=== PATIENT | male | born 1950 | race Caucasian/White ===

== ENCOUNTER 2025-08-26 12:21 | Outpatient (CLI) | payer MEDICARE, BC, SELFPAY ==
--- OUTSIDE RECORDS SUMMARY | 2025-06-27 11:15 | XMS_ITS | Encounter Summary ---
[facility] [address] [place] [address] Care Team Providers Care Patternmaker Wood Name Role Phone Dmitri Wilkinson MD Primary Care Provider [phone] Reason for Visit * Reason Comments Sleep Apnea Pt states he is here for 31-90 day follow up on MARII. He is doing well on current therapy. DL is in Ready To Travel. Encounter Details Date Type Department Care Team (Late st Contact Info) Description 06/27/2025 11:15 AM EDT Office Visit [facility] [address] [place] [address] Yuli Watts MD [address] [place] [address] MARII (obstructive sleep apnea) (Primary Dx) Social History Tobacco Use Types Packs/Day Years Used Date Smoking Tobacco: Never Passive Smoke Exposure: Never Smokeless Tobacco: Never Tobacco Cessation:Counseling Given: Yes Alcohol Use Standard Drinks/Week Comments Yes 4 (1 standard drink = 0.6 oz pur e alcohol) PHQ-2 Answer Date Recorded Retired PHQ-9: Brief Depression Severity Measure Score 0 01/31/2023 PHQ-2 Answer Date Recorded Patient Health Questionnaire-2 Score 0 05/16/2025 Sex and Gender Information Value Date Recorded Sex Assigned at Male 02/27/2025 12:14 PM EDT Legal Sex Male 11:18 AM EDT Gender Identity Not on file Sexual Orientation Not on file documented as of this encounter Last Filed Vital Signs Vital Sign Reading Time Taken Comments Blood Pressure 116/64 06/27/2025 11:04 AM EDT Pulse 78 06/27/2025 11:04 AM EDT Temperature - - Respiratory Rate - - Oxygen Saturation 97% 06/27/2025 11:04 AM EDT Inhaled Oxygen Concentration - - Weight 125 kg (276 lb) 06/27/2025 11:04 AM EDT Height 182.9 cm (6') 06/27/2025 11:04 AM EDT Body Mass Index 37.43 06/27/2025 11:04 AM EDT documented in this encounter Progress Notes * Yuli Watts MD - 06/27/2025 11:15 AM EDT Images from the original note were not included. [facility] Provider Note Date: 06/27/2025 Name: Jorge Danielson : 1950 PCP: Dmitri Wilkinson MD No chief complaint on file. Subjective History of Present Illness Jorge Danielson is a 75 y.o. male with MARII who presents today for follow up with compliance visit for new machine. Reports that is doing well with current therapy. DL in EPIC and reviewed.Feels rested. Likes new machine. Sleeps well now without snoring. States that spinal stenosis and peripheral neuropathy is acting up. Relays that is in good shape. Goes to gym every morning every day for an hour and doing well with that. Losing weight. 06/27/2025 Updated with no new issues or concerns. Cardiology 1. MARII 2. Mild CAD- CTA -06/17/2021 Impression: Moderate coronary calcification with an Agatston score = 131 using the AJ-130method, which represents 44th percentile when matched for age, gender and ethnicity. Vascular age is 74 years. There is mild disease in the diagonal and OM branches. Non-obstructive disease in the remaining coronary artery vessels. No Known Allergies Current Outpatient Medications: acetaminophen (TYLENOL) 500 MG tablet, Take 1 tablet by mouth Every 6 (Six) Hours As Needed for Mild Pain. Patient taking 2 tablets, Disp: , Rfl: albuterol sulfate HFA 108 (90 Base) MCG/ACT inhaler, Inhale 2 puffs Every 4 (Four) Hours As Needed for Wheezing or Shortness of Air., Disp: 18 g, Rfl: 1 aspirin 81 MG chewable tablet, Chew 1 tablet Daily., Disp: , Rfl: atorvastatin (LIPITOR) 40 MG tablet, TAKE 1 TABLET BY MOUTH EVERY DAY, Disp: 90 tablet, Rfl: 2 cetirizine (ZyrTEC Allergy) 10 MG tablet, Take 1 tablet every day by oral route as needed., Disp: ,Rfl: Cholecalciferol 25 MCG (1000 UT) tablet, Take 1 tablet by mouth 2 (Two) Times a Day. (Patient taking differently: Take 1 tablet by mouth Daily.), Disp: , Rfl: DULoxetine (Cymbalta) 30 MG capsule, Take 1 capsule by mouth Daily., Disp: 90 capsule, Rfl: 3 DULoxetine (CYMBALTA) 60 MG capsule, Take 1 capsule by mouth Daily., Disp: 90 capsule, Rfl: 3 gabapentin (NEURONTIN) 600 MG tablet, Take 600 mg po TID and 1200 mg qhs, Disp: 450 tablet, Rfl: 1 losartan (COZAAR) 25 MG tablet, TAKE 1 TABLET BY MOUTH EVERY DAY, Disp: 90 tablet, Rfl: 2 magnesium oxide (MAG-OX) 400 MG tablet, Take 1 tablet by mouth Daily., Disp: , Rfl: melatonin 5 MG tablet tablet, Take 1 tablet by mouth As Needed., Disp: , Rfl: meloxicam (MOBIC) 15 MG tablet, Take 1 tablet by mouth Daily As Needed for Moderate Pain., Disp: 90tablet, Rfl: 2 multivitamin with minerals (CENTRUM SILVER 50+MEN PO), Take 1 tablet by mouth Daily., Disp: , Rfl: mupirocin (BACTROBAN) 2 % ointment, Apply 1 Application topically to the appropriate area as directed 3 (Three) Times a Day., Disp: 22 g, Rfl: 0 Mcadoo-3 Fatty Acids (OMEGA 3 PO), Take by mouth., Disp: , Rfl: polyethylene glycol (MiraLax) 17 GM/SCOOP powder, 1/2-1 capful mixed with glass of juice or water orally once daily, titrating to maintain 1 or 2 soft bowel movements daily, Disp: 527 g, Rfl: 5 psyllium (METAMUCIL) 58.6 % packet, Take 1 packet by mouth Daily., Disp: , Rfl: Past Medical History: Diagnosis Date Athscl heart disease of zuni coronary artery w/o ang pctrs Benign lipomatous neoplasm of skin and subcutaneous tissue of trunk BPH (benign prostatic hyperplasia) Cervical disc disorder Chronic pain disorder Difficulty walking Erectile dysfunction Essential (primary) hypertension Extremity pain Fractures High cholesterol Knee swelling Low back pain Low back strain Lumbosacral disc disease Mixed hyperlipidemia Neuropathy Obesity Obstructive sleep apnea (adult) (pediatric) Old myocardial infarct Olecranon bursitis of left elbow Pain in right foot Pain in right knee Peripheral neuropathy Pneumonia Prediabetes Spinal stenosis Past Surgical History: Procedure Laterality Date APPENDECTOMY BACK SURGERY 02/28/2023 epidural & steroid injection [place] CARDIOVASCULAR STRESS TEST 05/12/2021 Nuclear study, EF 33 to 38%, fixed inferior perfusion defect likely attenuation with minimal reversibility, overall low risk study CATARACT EXTRACTION Right 2024 COLONOSCOPY 10/29/2009 Dr. Barcenas, 10 year followup recommended EPIDURAL BLOCK FRACTURE SURGERY Fractures involving arm finger and foot INGUINAL HERNIA REPAIR Bilateral 1 as an and the second as a young man JOINT REPLACEMENT KNEE ARTHROSCOPY Left 1987 associated with a believe of the meniscus injury LIPOMA EXCISION left shoulder Dr. Zepeda ORTHOPEDIC SURGERY SHOULDER SURGERY Bilateral performed by Dr. 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 Victorino Reyes TOTAL KNEE ARTHROPLASTY Right 12/30/2023 right total knee arthroplasty with [employer] components (# 8 cruciate retaining femur, # 7 tibia, 12 mm polyethylene, with 35 three peg patella) with CORI robotic assitance By Dr. Victorino Reyes TRIGGER POINT INJECTION Family History Problem Relation Age of Onset Hypertension Mother Stroke Mother Cancer Father Social History Socioeconomic History Marital status: Number of children: 2 Tobacco Use Smoking status: Never Passive exposure: Never Smokeless tobacco: Never Vaping Use Vaping status: Never Used Substance and Sexual Activity Alcohol use: Yes Alcohol/week: 4.0 standard drinks of alcohol Types: 2 Glasses of wine, 2 Cans of beer per week Drug use: Never Sexual activity: Not Currently Partners: Female Objective Vital Signs: There were no vitals taken for this visit. Estimated body mass index is 37.83 kg/m?? as calculated from the following: Height as of 05/16/25: 182.9 cm (72.01 ). Weight as of 05/16/25: 127 kg (279 lb). Physical Exam Constitutional: Appearance: Normal appearance. He is well-developed. HENT: Head: Normocephalic and atraumatic. Eyes: General: No scleral icterus. Pupils: Pupils are equal, round, and reactive to light. Cardiovascular: Rate and Rhythm: Normal rate and regular rhythm. Heart sounds: Normal heart sounds. No murmur heard. Pulmonary: Breath sounds: Normal breath sounds. No wheezing or rhonchi. Musculoskeletal: Right lower leg: No edema. Left lower leg: No edema. Skin: Capillary Refill: Capillary refill takes less than 2 seconds. Coloration: Skin is not cyanotic. Nails: There is no clubbing. Neurological: Mental Status: He is alert and oriented to person, place, and time. Motor: No weakness. Gait: Gait normal. Psychiatric: Mood and Affect: Mood normal. Behavior: Behavior is cooperative. Thought Content: Thought content normal. Assessment and Plan ASSESSMENTS AND ORDERS There are no diagnoses linked to this encounter. PLAN -new pap machine going well.Pap DL reviewed, good compliance and control. Benefiting from pap therapy and plan to continue. -due for labs in August, can review at next OV. Follow Up No follow-ups on file. Claudia Watts MD Cardiology and Sleep [facility] 06/27/2025 Please note that this explicitly excludes time spent on other separate billable services such as performing procedures or test interpretation, when applicable. This note was created using dictation software which occasionally transcribes nonsensical phrases. Please contact the provider if any clarification is needed. documented in this encounter Plan of Treatment Upcoming Encounters Date Type Department Care Team (Late st Contact Info) Description 08/30/2025 8:45 AM EDT Office Visit [facility] [address] [place] [address] [place] [phone] Dmitri Wilkinson MD [address] [place] [address] [place] [id number] 09/12/2025 10:45 AM EDT Office Visit [facility] NEUR[facility] [address] [facility] [address] [place] [address] Brandt Stout MD [address] [facility] [address] [place], [place] [id number] 09/26/2025 11:45 AM EST Office Visit [facility] [address] [place] [address] Tete Ovalle PA-C [address] [place], [place] [id number] 01/02/2026 10:45 AM EST Office Visit [facility] CARDIOLOG[facility] [address] [place] [address] [place] [address] documented as of this encounter Visit Diagnoses Diagnosis MARII (obstructive sleep apnea)- Primary Obstructive sleep apnea (adult) (pediatric) documented in this encounter Care Teams Patternmaker Wood Relationship Specialty Start Date End Date Dmitri Wilkinson MD [address] [place] [address] [place] [address] PCP - General Internal Medicine 09/08/22 documented as of this encounter
--- OUTSIDE RECORDS SUMMARY | 2025-07-18 09:30 | XMS_ITS | Encounter Summary ---
[facility] Address [address] [place] [id number] Care Team Providers Care Eligibility Analyst Name Role Phone Dmitri Wilkinson MD Primary Care Provider [phone] Reason for Referral * MRI/CAT/PET Scan (Routine) - Authorized Specialty Diagnoses / Procedures Referred By Contac t Referred To Contact Diagnoses Vertebrogenic low back pain Procedures MRI Lumbar Spine Without Contrast Tete Ovalle PA-C [address] [place] [address] Phone: tel: fax: [facility] [address] [place] [address] [address] [place] [address] Phone: tel: fax: Referral ID Status Reason Start Date Expiration Date V isits Requested Visits Authorized [id number] Authorized 07/18/2025 10/17/2026 1 1 Reason for Visit * Reason Comments Follow-up SCS nevro Back Pain Encounter Details Date Type Department Care Team (Late st Contact Info) Description 07/18/2025 9:30 AM EDT Office Visit [facility] [address] [facility] [address] [place] [phone] Tete Ovalle PA-C [address] [facility] [address] [place] [address] S/P insertion of spinal cord stimulator (Primary Dx); Painful diabetic neuropathy; Lumbosacral spondylosis without myelopathy; Vertebrogenic low back pain; Chronic pain syndrome Social History Tobacco Use Types Packs/Day Years Used Date Smoking Tobacco: Never Passive Smoke Exposure: Never Smokeless Tobacco: Never Tobacco Cessation:Counseling Given: Not Answered Alcohol Use Standard Drinks/Week Comments Yes 4 (1 standard drink = 0.6 oz pur e alcohol) PHQ-2 Answer Date Recorded Retired PHQ-9: Brief Depression Severity Measure Score 0 01/31/2023 PHQ-2 Answer Date Recorded Patient Health Questionnaire-2 Score 0 07/18/2025 Sex and Gender Information Value Date Recorded Sex Assigned at Male 02/27/2025 12:14 PM EDT Legal Sex Male 11:18 AM EDT Gender Identity Not on file Sexual Orientation Not on file documented as of this encounter Last Filed Vital Signs Vital Sign Reading Time Taken Comments Blood Pressure - - Pulse - - Temperature - - Respiratory Rate - - Oxygen Saturation - - Inhaled Oxygen Concentration - - Weight 126 kg (277 lb) 07/18/2025 9:08 AM EDT Height 182.9 cm (6' 0.01 ) 07/18/2025 9:08 AM ED T Body Mass Index 37.56 07/18/2025 9:08 AM EDT documented in this encounter Functional Status documented as of this encounter Progress Notes * Tete Ovalle PA-C - 07/18/2025 9:30 AM EDTAddended by: TETE LIRA on: 07/18/2025 03:40 PM Modules accepted: Orders * Tete Ovalle PA-C - 07/18/2025 9:30 AM EDT Referring Physician: Dmitri Wilkinson MD [address] [place] [address] [place] [address] Primary Physician: Dmitri Wilkinson MD CHIEF COMPLAINT or REASON FOR VISIT: Follow-up ([facility] jenniffer) and Back Pain Initial history of present illness on 06/18/2024: Mr. Jorge Danielson is 75 y.o. male who presents as a new patient referral for evaluation and treatment of chronic axial low back pain, chronic bilateral foot burning pain. He has had back pain for many years without any specific inciting event or trauma. He describes axial back pain without radiation of the buttocks; pain is exacerbated with extension. He denies much association with ambulation. It tends to be ameliorated with rest. He takes Mobic for this issue which is helpful. Additionally takes duloxetine. He also complains of bilateral foot burning pain. He has had this for several years and it seems to be worsening over time. He takes gabapentin 600 mg 4 times a day to modest effect. If he does not take a pill or even takes it a bit late he has significant return of burning pain in his feet. He is prediabetic with well-controlled HbA1c. He is interested in additional treatments forthis issue. Patient denies any bowel or bladder dysfunction, lower extremity weakness, new onset saddle anesthesia or unexplained weight loss. He was previously treated by Dr. Bullock, pain management, and had a single consultation with Dr. Alston at [facility]. Dr. Bullock performed what sounds like lumbar facet injections. He has never had any back surgery. Interval history: Patient returns to clinic today. At his last office visit he was complaining of increased low back and bilateral foot pain. We did obtain a thoracic radiograph to rule out any type of spinal cord stimulator lead migration. Today, he primarily has axial low back pain as well as bilateral foot burning pain. He states the stimulator will provide relief for approximately 1 week before his symptoms exacerbate. Denies any radiation of his low back pain into the lower extremities. Denies any association with ambulation. Primarily has axial low back pain which is worse with activities that involve forward flexion/bending over. Most recent lumbar MRI was in 2020. Interventions: 09/20/2024: SCS trial Nevro with leads to T8 and T9 with 60 to 70% relief 12/18/2024: SCS implant Nevro (top of T8 and T9) with Objective Pain Scoring: BRIEF PAIN INVENTORY: Total score: Pain Score 07/18/25 0908 PainSc: 8 PainLoc: Foot PHQ-2: PHQ-9: Opioid Risk Tool: Review of Systems: ROS negative except as otherwise noted Past Medical History: Past Medical History: Diagnosis Date Athscl heart disease of [place] coronary artery w/o ang pctrs Benign lipomatous [...] Pneumonia Prediabetes Spinal stenosis Past Surgical History: Past Surgical History: Procedure Laterality Date APPENDECTOMY BACK SURGERY 02/28/2023 epidural & steroid injection [place] CARDIOVASCULAR STRESS TEST 05/12/2021 Nuclear study, EF [...] Victorino Reyes TRIGGER POINT INJECTION Family History Family History Problem Relation Age of Onset Hypertension Mother Stroke Mother Cancer Father Social History Social History Socioeconomic History Marital status: Number of children: 2 Tobacco Use Smoking status: Never Passive exposure: Never Smokeless tobacco: Never Vaping Use Vaping status: Never Used Substance and Sexual Activity Alcohol use: Yes Alcohol/week: 4.0 standard drinks of alcohol Types: 1 Glasses of wine, 1 Cans of beer, 2 Shots of liquor per week Drug use: Never Sexual activity: Not Currently Partners: Female Medications: Current Outpatient Medications: acetaminophen (TYLENOL) 500 MG [...] a Day., Disp: 22 g, Rfl: 0 [place]-3 Fatty Acids (OMEGA 3 PO), Take by mouth., Disp: , Rfl: polyethylene glycol (MiraLax) 17 GM/SCOOP powder, 1/2-1 capful mixed with glass of juice or water orally once daily, titrating to maintain 1 or 2 soft bowel movements daily, Disp: 527 g, Rfl: 5 psyllium (METAMUCIL) 58.6 % packet, Take 1 packet by mouth Daily., Disp: , Rfl: Physical Exam: Vitals: 07/18/25 0908 Weight: 126 kg (277 lb) Height: 182.9 cm (72.01 ) PainSc: 8 PainLoc: Foot General: Alert and oriented, No acute distress. HEENT: Normocephalic, atraumatic. Cardiovascular: No gross edema Respiratory: Respirations are non-labored Thoracic Spine: Inspection: no gross abnormality Paraspinal muscle palpation: nontender Spinous process palpation: nontender Lumbar Spine: No masses or atrophy Range of motion - Flexion normal. Extension reduced. Facet Loading: Positive bilaterally Facet Palpation -tender bilaterally Leticia finger/Gaenslen's/Yash's/RYAN/Thigh thrust - Straight leg raise/slump test: Negative bilaterally Pain with forward flexion Motor Exam: Strength: Rate on 1-5 scale Right Left L1/2- hip flexion 5/5 5/5 L3- knee extension 5/5 5/5 L4- ankle dorsiflexion 5/5 5/5 L5- great toe extension 5/5 5/5 S1- ankle plantarflexion 5/5 5/5 Sensory Exam: Reduced sensation to light touch in bilateral stocking distribution Neurologic: Cranial Nerves II-XII are grossly intact. Psychiatric: Cooperative. Gait: Antalgic Assistive Devices: None Imaging Studies: No results found for this or any previous visit. Independent review of radiographic imaging: Available for my interpretation is a lumbar MRI demonstrating: Grade 1 anterolisthesis of L4 on L5 with severe canal stenosis; bilateral L5/S1 neuroforaminal stenosis; Facet arthropathy worst at L4/L5. Thoracic radiographs dated 05/16/2025 demonstrates: Spinal cord stimulator leads projecting to mid [id number] body and superior endplate of T8 Impression & Plan: 06/18/2024: Jorge Danielson is a 75 y.o. male with past medical history significant for HLD, MARII, prediabetes, idiopathic peripheral neuropathy, first- degree AV block, DM2, who presents to the pain clinic for evaluation and treatment of chronic low back pain, chronic bilateral peripheral neuropathy. MRI interpretation as above. Back pain consistent with lumbar facet arthropathy. He does not have any signs of classic neurogenic claudication despite severe canal stenosis at L4/L5. His primary complaint is burning pain secondary to peripheral neuropathy. He has tried maximum dose gabapentin, compounded topical antineuropathic creams, duloxetine. We discussed spinal cord stimulator trial with Nevro HF10 therapy for painful diabetic neuropathy. Patient was provided a pamphlet on this modality. We will obtain psychiatric clearance for SCS trial. 08/20/2024: Will get psychiatric clearance for SCS trial faxed over. Once psych clearance is received we will proceed with HF 10 SCS trial. Risk of this procedure include bleeding, infection, damage to surrounding structures which may exacerbate symptoms, paralysis, and even . He voiced understanding 09/24/2024: Excellent relief from SCS trial with Nevro. Will proceed with permanent implant. Received gabapentin from neurology. 01/01/2025: 2 weeks s/p permanent SCS implant with Nevro. Incisions healing appropriately. Patient recovering appropriately. Will refill Cymbalta. Continue postoperative restrictions. 01/29/2025: 6 weeks s/p permanent SCS implant with Nevro. Incisions healing appropriately. Patient recovered appropriately. Postoperative restrictions lifted. Nevro device rep here for reprogramming 05/16/2025: S/p permanent SCS implant with Nevro. Was doing well until 2 days ago. Will need thoracic x-ray to rule out lead migration. Nevro rep here for reprogramming. 07/18/2025: Will obtain updated lumbar MRI for suspicion of vertebrogenic low back pain. Nevro devicerep here for questions and reprogramming of stimulator for bilateral foot burning pain. Do have suspicion for overstimulation. Thoracic radiograph reveals leads in programmable position. 1. S/P insertion of spinal cord stimulator 2. Painful diabetic neuropathy 3. Lumbosacral spondylosis without myelopathy 4. Vertebrogenic low back pain 5. Chronic pain syndrome PLAN: 1. Medication Recommendations: Recommend Voltaren topical, NSAIDs, Tylenol. Can trial turmeric 500 mg twice daily if NSAID contraindicated. - Agree with gabapentin and Cymbalta -Continue Mobic 2. Physical Therapy: Continue HEP Postoperative restrictions lifted 3. Psychological: 4. Complementary and alternative (CAM) Therapies: 5. Labs/Diagnostic studies: Compliant UDS as of 06/28/2024 6. Imaging: Thoracic radiograph reviewed and interpreted; reveals leads in similar position to original placement. - Obtain updated lumbar MRI for investigation of Modic endplate changes. Most recent lumbar MRI in 2020 reveals L5, S1 Modic endplate change; Nevro spinal cord stimulator will need to be put in MRI mode. 7. Interventions: 7 months s/p permanent SCS implant with Nevro. -Nevro device rep here for reprogramming 8. Referrals: 9. Records: 10. Lifestyle goals: Follow-up [address] Hill [facility] Pain Management Tete Ovalle PA-C Quality Metrics: documented in this encounter Plan of Treatment Upcoming Encounters Date Type Department Care Team (Late st Contact Info) Description 08/30/2025 8:45 AM EDT Office Visit [facility] PRIMARY CARE [address] [place] [address] [place] [address] Dmitri Wilkinson MD [address] [place] [address] [place] [address] 09/12/2025 10:45 AM EDT Office Visit [facility] [address] [facility] [address] [place] [address] Brandt Stout MD [address] [facility] [address] [place], [place] [id number] 09/26/2025 11:45 AM EST Office Visit [facility] PAIN MANAGEMENT [address] [place] [address] [address] [place] [address] Tete Ovalle PA-C [address] [facility] [address] [place], [place] [id number] 01/02/2026 10:45 AM EST Office Visit [facility] CARDIOLOGY [address] [place] [address] [address] [place] [address] [place] [address] documented as of this encounter Procedures Procedure Name Priority Date/Time Associated Diagnosis Comments MRI LUMBAR SPINE WO CONTRAST Routine 08/01/2025 Vertebrogenic low back pain documented in this encounter Results * MRI Lumbar Spine Without Contrast (08/01/2025) Anatomical Region Laterality Modality Spine, L-spine N/A Magnetic Resonan ce Tete Ovalle PA-C IMG MRI ORDERABLES Final Result documented in this encounter Visit Diagnoses Diagnosis S/P insertion of spinal cord stimulator- Primary Painful diabetic neuropathy Type II or unspecified type diabetes mellitus with neurological manifestations, not stated as uncontrolled Lumbosacral spondylosis without myelopathy Vertebrogenic low back pain Chronic pain syndrome documented in this encounter Care Teams Eligibility Analyst Relationship Specialty Start Date End Date Dmitri Wilkinson MD [address] [place] [address] [place] [address] PCP - General Internal Medicine 09/08/22 documented as of this encounter
--- OUTSIDE RECORDS SUMMARY | 2025-08-14 13:10 | XMS_ITS | Encounter Summary ---
[facility] Address [address] [place] [id number] Care Team Providers Care Web Merchant Name Role Phone Dmitri Wilkinson MD Primary Care Provider [phone] Reason for Referral * Surgical (Routine) - Authorized Specialty Diagnoses / Procedures Referred By Contac t Referred To Contact Diagnoses Spinal stenosis of lumbar region with neurogenic claudication Procedures External Facility Surgical/Procedural Request Neftaly Hill MD [address] [address] Phone: tel: fax: [facility] AT [address] [place] [address] Phone: tel: fax: Referral ID Status Reason Start Date Expiration Date V isits Requested Visits Authorized [id number] Authorized Other 08/14/2025 11/13/2026 1 1 Reason for Visit * Reason Comments Follow-up Back pain Encounter Details Date Type Department Care Team (Late st Contact Info) Description 08/14/2025 1:10 PM EDT Office Visit [facility] PAIN MANAGEMENT [address] [id number] Neftaly Hill MD [address] [place] [address] S/P insertion of spinal cord stimulator (Primary Dx); Painful diabetic neuropathy; Lumbosacral spondylosis without myelopathy; Chronic pain syndrome; Spinal stenosis of lumbar region with neurogenic claudication Social History Tobacco Use Types Packs/Day Years Used Date Smoking Tobacco: Never Passive Smoke Exposure: Never Smokeless Tobacco: Never Tobacco Cessation:Counseling Given: Not Answered Alcohol Use Standard Drinks/Week Comments Yes 6 (1 standard drink = 0.6 oz pur e alcohol) PHQ-2 Answer Date Recorded Retired PHQ-9: Brief Depression Severity Measure Score 0 01/31/2023 PHQ-2 Answer Date Recorded Patient Health Questionnaire-2 Score 0 08/14/2025 Sex and Gender Information Value Date Recorded [...] - Inhaled Oxygen Concentration - - Weight 125 kg (275 lb) 08/14/2025 1:14 PM EDT Height 182.9 cm (6') 08/14/2025 1:14 PM EDT Body Mass Index 37.3 08/14/2025 1:14 PM EDT documented in this encounter Functional Status documented as of this encounter Progress Notes * Neftaly Hill MD - 08/14/2025 1:10 PM EDT Referring Physician: No referring provider defined for this encounter. Primary Physician: Dmitri Wilkinson MD CHIEF COMPLAINT or REASON FOR VISIT: Follow-up (Back pain) Initial history of present illness on 06/18/2024: [...] a single consultation with Dr. Alston at [facility]. Dr. Bullock performed what sounds like lumbar facet injections. He has never had any back surgery. Interval history: Patient returns to clinic today. He is doing well with his spinal stimulator for peripheral neuropathy however is complaining of increasing back pain. He has historically had excellent benefit with epidural steroid injections. 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 CARDIOVASCULAR STRESS TEST 05/12/2021 Nuclear study, EF [...] and Sexual Activity Alcohol use: Yes Alcohol/week: 6.0 standard drinks of alcohol Types: 2 Glasses of wine, 2 Cans of beer, 2 Shots of liquor [...] tablet by mouth Daily.), Disp: , Rfl: diazePAM (Valium) 5 MG tablet, Take 1 tablet by mouth As Needed for Anxiety. 1 tablet 30 minutes prior to MRI, and 1 tablet immediately before MRI as needed, Disp: 2 tablet, Rfl: 0 DULoxetine (Cymbalta) 30 MG capsule, Take 1 [...] a Day., Disp: 22 g, Rfl: 0 [place]ams-3 Fatty Acids (OMEGA 3 PO), Take by mouth., Disp: , Rfl: polyethylene glycol (MiraLax) 17 GM/SCOOP powder, 1/2-1 capful mixed with glass of juice or water orally once daily, titrating to maintain 1 or 2 soft bowel movements daily, Disp: 527 g, Rfl: 5 psyllium (METAMUCIL) 58.6 % packet, Take 1 packet by mouth Daily., Disp: , Rfl: Physical Exam: Vitals: 08/14/25 1314 Weight: 125 kg (275 lb) Height: 182.9 cm (72 ) PainSc: 9 PainLoc: Back General: Alert and oriented, No acute distress. HEENT: Normocephalic, atraumatic. Cardiovascular: No gross edema Respiratory: Respirations are non-labored Thoracic Spine: Inspection: no gross abnormality Paraspinal muscle palpation: nontender Spinous process palpation: nontender Lumbar Spine: No masses or atrophy Range of motion - Flexion normal. Extension reduced. Facet Loading: Positive bilaterally Facet Palpation -tender bilaterally Letciia finger/Gaenslen's/Yash's/RYAN/Thigh thrust - Straight leg raise/slump test: [...] Spinal cord stimulator leads projecting to mid [id number] body and superior endplate of T8 Available for my interpretation is a lumbar MRI dated August 01, 2025 demonstrating: Scoliosis; mild canal stenosis at L2/L3; severe canal stenosis at L4/L5 severe right L2/L3 foraminal stenosis Impression & Plan: 06/18/2024: Jorge Danielson is [...] Thoracic radiograph reveals leads in programmable position. 08/14/2025: Good relief of neuropathy with SCS. L4-5 stenosis; plan for LESI. Consider L4-5 Minuteman. 1. S/P insertion of spinal cord stimulator 2. Painful diabetic neuropathy 3. Lumbosacral spondylosis without myelopathy 4. Chronic pain syndrome 5. Spinal stenosis of lumbar region with neurogenic claudication PLAN: 1. Medication Recommendations: Recommend Voltaren topical, NSAIDs, Tylenol. Can trial turmeric 500 mg twice daily if NSAID contraindicated. - Agree with gabapentin and Cymbalta -Continue Mobic 2. Physical Therapy: Continue HEP 3. Psychological: 4. Complementary and alternative (CAM) Therapies: 5. Labs/Diagnostics: 6. Imaging: MRI independently interpreted and reviewed with patient 7. Interventions: Schedule lumbar interlaminar epidural steroid injection (possible L3/L4). Consider L4-5 Minuteman 8. Referrals: 9. Records: 10. Lifestyle goals: Follow-up [address] Neftaly Hill MD [facility] Quality Metrics: documented in this encounter Plan of Treatment Upcoming Encounters Date Type Department Care Team (Late st Contact Info) Description 08/30/2025 8:45 AM EDT Office Visit [facility] [address] [place] [address] [place] [address] Dmitri Wilkinson MD [address] [place] [address] 09/12/2025 10:45 AM EDT Office Visit [facility] [address] [place] [address] Brandt Stout MD [address] [place] [address] 09/26/2025 11:45 AM EST Office Visit [facility] PAIN MANAGEMENT [address] [facility] [address] [place] [address] Tete Ovalle PA-C [address] [facility] [address] [place], [place] [phone] 01/02/2026 10:45 AM EST Office Visit [facility] [address] [facility] [address] [place] [address] Yuli Watts MD [address] [place] [address] Scheduled Orders Name Type Priority Associated Diagnoses Orde r Schedule External Facility Surgical/Procedural Request Procedures Routine Spinal stenosis of lumbar region with neurogenic claudication Expected: 08/14/2025, Expires: 08/14/2026 documented as of this encounter Visit Diagnoses Diagnosis S/P insertion of spinal cord stimulator- Primary 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
--- OUTSIDE RECORDS SUMMARY | 2025-08-26 12:30 | XMS_ITS | Encounter Summary ---
[facility] Address [address] [place] [id number] Care Team Providers Care Exhibit Carpenter Name Role Phone Dmitri Wilkinson MD Primary Care Provider [phone] Encounter Details Date Type Department Care Team (Latest Contact Info) Description 06/27/2025 Travel Social History Tobacco Use Types Packs/Day Years Used Date Smoking Tobacco: Never Passive Smoke Exposure: Never Smokeless Tobacco: Never Alcohol Use Standard Drinks/Week Comments Yes 4 [...] on file documented as of this encounter Plan of Treatment Upcoming Encounters Date Type Department Care Team (Late st Contact Info) Description 08/30/2025 8:45 AM EDT Office Visit [facility] PRIMARY [facility] [address] [place] [address] [place] [address] Dmitri Wilkinson MD [address] [place] [address] 09/12/2025 10:45 AM EDT Office Visit [facility] [address] [facility] [address] [place] [address] Brandt Stout MD [address] [facility] [address] [place], [place] [id number] 09/26/2025 11:45 AM EST Office Visit [facility] PAIN MANAGEMENT [address] [facility] [address] [place] [address] Tete Ovalle PA-C [address] [facility] [address] [place], [place] [phone] 01/02/2026 10:45 AM EST Office Visit [facility] [address] [facility] [address] [place] [address] Yuli Watts MD [address] [place] [address] [place] [address] documented as of this encounter Visit Diagnoses Not on filedocumented in this encounter Care Teams Exhibit Carpenter Relationship Specialty Start Date End Date Dmitri Wilkinson MD [address] [place] [address] [place] [address] PCP - General Internal Medicine 09/08/22 documented as of this encounter
--- OUTSIDE RECORDS SUMMARY | 2025-08-26 12:30 | XMS_ITS | Encounter Summary ---
[facility] Address [address] [place] [address] Care Team Providers Care Structural Designer Name Role Phone Dmitri Wilkinson MD Primary Care Provider [phone] Reason for Visit * Reason Onset Date Comments DAVID CRISP - RX REFILL 06/12/2025 Encounter Details Date Type Department Care Team (Late st Contact Info) Description 06/12/2025 Telephone [facility] PAIN [facility]NA[facility]EMENT [address] David Ovalle PA-C [address] [place] [address] DAVID CRISP - RX REFILL Social History Tobacco Use Types Packs/Day Years [...] on file documented as of this encounter Miscellaneous Notes * Telephone Encounter - Abe Mobley - 06/12/2025 12:55 PM EDT Caller: Erum Jorgevin Martinez Relationship: Self Best call back number: [phone]* Requested Prescriptions: [facility] where request should be sent: [facility][id number] - [place], [place] - [address] [place] [address] - [phone] - [phone] Last office visit with prescribing clinician: 05/16/2025 Last telemedicine visit with prescribing clinician: Visit date not found Next office visit with prescribing clinician: 07/18/2025 Additional details provided by patient: N/A Does the patient have less than a 3 day supply: [] Yes [x] No Would you like a call back once the refill request has been completed: [x] Yes [] No If the office needs to give you a call back, can they leave a voicemail: [x] Yes [] No Abe Mobley 06/12/25 12:55 EDT documented in this encounter Plan of Treatment Upcoming Encounters Date Type Department Care Team (Late st Contact Info) Description 08/30/2025 8:45 AM EDT Office Visit [facility] [address] [place] [address] [place] [address] Dmitri Wilkinson MD [address] [place] [address] [place] [address] 09/12/2025 10:45 AM EDT Office Visit [facility] NEUROLOGY [address] [facility] [address] [place] [address] Brandt Stout MD [address] [facility] [address] [place] [address] 09/26/2025 11:45 AM EST Office Visit [facility] PAIN MANAGEMENT [address] [facility] [address] [place] [address] David Ovalle PA-C 1760 [facility] [address] [place], [place] [address] 01/02/2026 10:45 AM EST Office Visit [facility] CARDIOLOGY 3000 [facility] [address] [place] [address] Yuli Watts MD [address] [place] [address] documented as of this encounter Visit Diagnoses Not on filedocumented in this encounter Care Teams Structural Designer Relationship Specialty Start Date End Date Dmitri Wilkinson MD [address] [place] [address] PCP - General Internal Medicine 09/08/22 documented as of this encounter
--- NOTE | 2025-08-26 12:31 | XR_ITS ---
FINAL REPORT CLINICAL HISTORY: evaluate left foot pain/injury FINDINGS: AP, oblique and lateral views of the left foot were obtained. There is no prior exam for comparison. There are very small calcifications adjacent to the proximal shaft of the 5th metatarsal seen only on the oblique view. These are well corticated and likely chronic. There is no acute fracture or dislocation. Mild degenerative joint disease. Soft tissues are unremarkable. IMPRESSION: Degenerative/chronic changes without acute osseous abnormality of the left foot. Reviewed, Interpreted and Dictated by Natalie Brothers MD Transcribed by Constanza Curry Authenticated and [facility]
--- OUTSIDE RECORDS SUMMARY | 2025-08-26 12:31 | XMS_ITS | Encounter Summary ---
[facility] Address [address] [place] [address] Care Team Providers Care Assistive Technology Specialist Name Role Phone Dmitri Wilkinson MD Primary Care Provider [phone] Reason for Visit * Reason Onset Date Comments HILL - SEDATIVE FOR MRI 07/29/2025 Encounter Details Date Type Department Care Team (Late st Contact Info) Description 07/29/2025 Telephone [facility] PAIN MANAGEMENT [address] [phone] Neftaly Hill MD 1760 [place] [address] HILL - SEDATIVE FOR MRI Social History Tobacco Use Types Packs/Day Years [...] encounter Miscellaneous Notes * Telephone Encounter - Sheila Pritchett RN - 07/29/2025 3:58 PM EDT LVM notifying patient valium has been sent in * Telephone Encounter - Kaycee Dunn RegSched Rep - 07/29/2025 2:34 PM EDT Caller: Jorge Danielson Relationship to patient: Self Best call back number: [phone] Patient is needing: PATIENT HAS AN MRI ON 07/31/25 AND IS REQUESTING A VALIUM BE SENT IN - STATES HEIS CLAUSTROPHOBIC HE WANTS A CALL ONCE SENT PLEASE ADVISE documented in this encounter Plan of Treatment Upcoming Encounters Date Type Department Care Team (Late st Contact Info) Description 08/30/2025 8:45 AM EDT Office Visit [facility] PRIMARY CARE [address] [place] [address] [place] [address] Dmitri Wilkinson MD [address] [place] [address] [place] [address] 09/12/2025 10:45 AM EDT Office Visit [facility] NEUROLOGY [address] [facility] [address] [place] [address] Brandt Stout MD [address] [facility] 201 [place] [address] 09/26/2025 11:45 AM EST Office Visit [facility] PAIN MANAGEMENT 3000 [facility] 330 [place] [address] Tete Ovalle PA-C [address] [facility] [address] [place] [address] 01/02/2026 10:45 AM EST Office Visit [facility] CARDIOLOGY 3000 [facility] [address] [place] [address] Yuli Watts MD [address] [place] [address] documented as of this encounter Visit Diagnoses Diagnosis Claustrophobia- Primary Other isolated or specific phobias documented in this encounter Care Teams Assistive Technology Specialist Relationship Specialty Start Date End Date Dmitri Wilkinson MD [address] [place] [address] [place] [address] PCP - General Internal Medicine 09/08/22 documented as of this encounter
--- OUTSIDE RECORDS SUMMARY | 2025-08-26 12:31 | XMS_ITS | Encounter Summary ---
[facility] Address [address] [place] [id number] Care Team Providers Care Last Repairer Name Role Phone Dmitri Wilkinson MD Primary Care Provider [phone] Encounter Details Date Type Department Care Team (Latest Contact Info) Description 07/18/2025 Travel Social History Tobacco Use Types Packs/Day [...] on file documented as of this encounter Functional Status documented as of this encounter Plan of Treatment Upcoming Encounters Date Type Department Care Team (Late st Contact Info) Description 08/30/2025 8:45 AM EDT Office Visit [facility] [address] [place] [address] [place] [address] Dmitri Wilkinson MD [address] [place] [address] 09/12/2025 10:45 AM EDT Office Visit [facility] [address] [email or web address] [address] [place] [address] Brandt Stout MD [address] [place] [address] 09/26/2025 11:45 AM EST Office Visit [facility] PAIN MANAGEMENT [address] [facility] [address] [place] [address] Tete Ovalle PA-C 1760 [facility] [address] [place], [place] [address] 01/02/2026 10:45 AM EST Office Visit [facility] CARD[facility]OLOG[facility] 3000 [facility] [address] [place] [address] Yuli Watts MD [address] [place] [address] [place] [address] documented as of this encounter Visit Diagnoses Not on filedocumented in this encounter Care Teams Last Repairer Relationship Specialty Start Date End Date Dmitri Wilkinson MD [address] [place] [address] [place] [address] PCP - General Internal Medicine 09/08/22 documented as of this encounter
--- OUTSIDE RECORDS SUMMARY | 2025-08-26 12:31 | XMS_ITS | Clinical Summary ---
Author Organization [employer] ([place], [place], [place], [place]) Address [address] [place] [address] Care Team Providers Care Fellmongery Worker Name Role Phone Unavailable Primary Care Provider Unavailabl e Social History Tobacco Use Types Packs/Day Years Used Date Smoking Tobacco: Never Assessed Food Insecurity Answer Date Recorded Food run out past 12 months Not on file 11/14 Food did not last past 12 months Not on file 12/02/2023 Employment Answer Date Recorded Help finding and keeping a job Not on file 0 12/02/2023 Family and Community Support Answer Reyes e Recorded Help with Day to Day Activities Not on file 12/02/2023 Feeling Lonely or Isolated Not on file 12/02 Educational Attainment Answer Date Gorge rded Speak language other than Bulgarian at home Not on file 12/02/2023 Want help with school or training Not on file 12/02/2023 Substance Use Answer Date Recorded Used prescription meds for non-medical reasons N ot on file 12/02/2023 Used illegal drugs past 12 months Not on file 12/02/2023 Sex and Gender Information Value Date Recorded Sex Assigned at Not on file Legal Sex Male 1:58 PM CDT Gender Identity Not on file Sexual Orientation Not on file Plan of Treatment Health Maintenance Due Date Last Done Comments Medicare Initial AWV G0438 Depression Screening (12+) 1961 Tobacco Cessation Counseling and Screening (12+) 1961 Hepatitis C Screening 1967 DTAP/TDAP/TD VACCINES (2 - T d or Tdap) 04/04/2016 04/04/2006 Pneumococcal 50+ years (2 of 2 - PCV20 or PCV21) 08/27/2020 08/27/2019 Respiratory Syncytial Virus (RSV) Adult or (1 - 1-dose 75+ series) 01/19/2024 Falls Risk Screening 11/14/2024 COVID-19 VACCINE (5 - 2024-2 6 season) 2025 04/02/2022, 10/05/2021, 01/09/2021, Additional history exists Influenza Vaccine (#1) 2025 2, 08/27/2019, 07/27/2017 Shingles Vaccine (Zoster) Completed 08/14/2018, 06/2018 Insurance [facility] DARRYL SAWYER ADV MEDICARE [place] [address] [place] [address]/[facility]
--- OUTSIDE RECORDS SUMMARY | 2025-08-26 12:31 | XMS_ITS | Encounter Summary ---
[facility] Address [address] [place] [id number] Care Team Providers Care Envelope Machine Operator Name Role Phone Dmitri Wilkinson MD Primary Care Provider [phone] Encounter Details Date Type Department Care Team (Late st Contact Info) Description 08/07/2025 Telephone [facility] PAIN MANAGEMENT [address] [place] [phone] Mitzi Zepeda MA Social History Tobacco Use Types Packs/Day Years [...] encounter Miscellaneous Notes * Telephone Encounter - Mitzi Zepeda MA - 08/07/2025 4:19 PM EDT Returned patient's call, he wanted to make sure we received MRI report from [facility]. Reminded him to bring disc next appointment. documented in this encounter Plan of Treatment Upcoming Encounters Date Type Department Care Team (Late st Contact Info) Description 08/30/2025 8:45 AM EDT Office Visit [facility] PRIMARY CARE [address] [place] [address] Dmitri Wilkinson MD [address] [place] [address] 09/12/2025 10:45 AM EDT Office Visit [facility] [address] [place] [address] Brandt Stout MD [address] [place] [address] 09/26/2025 11:45 AM EST Office Visit [facility] PAIN MANAGEMENT 3000 [facility] [address] [place] [address] Tete Ovalle PA-C [address] [place] [address] [address] [place], [place] [address] 01/02/2026 10:45 AM EST Office Visit [facility] CARDIOLOGY 3000 [facility] [address] [place] [address] Yuli Watts MD [address] [place] [address] documented as of this encounter Visit Diagnoses Not on filedocumented in this encounter Care Teams Envelope Machine Operator Relationship Specialty Start Date End Date Dmitri Wilkinson MD [address] [place] [address] PCP - General Internal Medicine 09/08/22 documented as of this encounter
--- OUTSIDE RECORDS SUMMARY | 2025-08-26 12:31 | XMS_ITS | Encounter Summary ---
[facility] [address] [place] [id number] Care Team Providers Care Dairy Quality Assurance Officer Name Role Phone Dmitri Wilkinson MD Primary Care Provider [phone] Encounter Details Date Type Department Care Team (Latest Contact Info) Description 08/14/2025 Travel Social History Tobacco Use Types Packs/Day Years Used Date Smoking Tobacco: Never Passive Smoke Exposure: Never Smokeless Tobacco: Never Alcohol Use Standard Drinks/Week Comments Yes 6 [...] Description 08/30/2025 8:45 AM EDT Office Visit [facility] PRIMARY [facility]ARE [address] [place] [address] [place] [address] Dmitri Wilkinson MD [address] [place] [address] 09/12/2025 10:45 AM EDT Office Visit [facility] NEUROLOG[facility] [address] [facility] [address] [place] [address] Brandt Stout MD [address] [place] [address] 09/26/2025 11:45 AM EST Office Visit [facility] PAIN MANAGEMENT [address] [facility] [address] [place] [address] Tete Ovalle PA-C 1760 [facility] [address] [place], [place] [address] 01/02/2026 10:45 AM EST Office Visit [facility] CARDIOLOGY 3000 [facility] 220 [place] [address] Yuli Watts MD [address] [place] [address] [place] [address] documented as of this encounter Visit Diagnoses Not on filedocumented in this encounter Care Teams Dairy Quality Assurance Officer Relationship Specialty Start Date End Date Dmitri Wilkinson MD [address] [place] [address] [place] [address] PCP - General Internal Medicine 09/08/22 documented as of this encounter
--- OUTSIDE RECORDS SUMMARY | 2025-08-26 12:31 | XMS_ITS | Clinical Summary ---
Author Organization [facility] Address [address] [place] [address] Care Team Providers Care Loom Fixer Supervisor Name Role Phone Anshul Wilkinson MD Primary Care Provider [phone] Allergies No known active allergies Social History Tobacco Use Types Packs/Day Years Used Date Smoking Tobacco: Never Assessed Sex and Gender Information Value Date Recorded Sex Assigned at Not on file Legal Sex Male 8:47 PM EDT Gender Identity Not on file Sexual Orientation Not on file Last Filed Vital Signs Vital Sign Reading Time Taken Comments Blood Pressure 96/62 06/17/2021 2:00 PM EDT Pulse 55 06/17/2021 2:00 PM EDT Temperature - - Respiratory Rate 12 06/17/2021 1:30 PM EDT Oxygen Saturation 96% 06/17/2021 12:36 PM EDT Inhaled Oxygen Concentration - - Weight - - Height - - Body Mass Index - - Plan of Treatment Health Maintenance Due Date Last Done Comments [facility]-Depression Screening 1950 [facility]-/Child/Adol SDOH Screenings 1950 [facility]- SDOH Screenings 1967 [facility]-Adult SDOH Screenings 1967 [facility]-DTaP,Tdap,and Td Vaccines (1 - Tdap) 01/19/1968 [facility]-Zoster Vaccines (1 of 2) 1999 [facility]-Pneumococcal Vaccine: 50+ Years (2 of 2 - PCV20 or PCV21) 08/27/2020 08/27/2019 [facility]-RSV Vaccine: 60+ Years or (1 - 1-dose 75+ series) 01/19/2024 [id number] Vaccine (3 - 2024-26 season) 2025 01/09/2021, 12/17/2020 [facility]-Influenza Vaccine (#1) 07/15/202507/15, 08/27/2019, 07/27/2017 HPV Vaccines Aged Out No longer eligi ble based on patient's age to complete this topic [facility]-HIB Vaccines Aged Out No longer e ligible based on patient's age to complete this topic [facility]-Hepatitis A Vaccines Aged Out No longer eligible based on patient's age to complete this topic [facility]-IPV Vaccines Aged Out No longer e ligible based on patient's age to complete this topic [facility]-Rotavirus Vaccines Aged Out No lo nger eligible based on patient's age to complete this [place] [address] [facility] Care Teams Loom Fixer Supervisor Relationship Specialty Start Date End Date Anshul Wilkinson MD [address] [place] [address] PCP - General 06/17/21
--- OUTSIDE RECORDS SUMMARY | 2025-08-26 12:31 | XMS_ITS | Encounter Summary ---
[facility] Address [address] [place] [address] Care Team Providers Care Fundraising Sale Representative Name Role Phone Dmitri Wilkinson MD Primary Care Provider [phone] Reason for Visit * Reason Onset Date Comments CRISP - MRI ORDER 07/18/2025 Encounter Details Date Type Department Care Team (Late st Contact Info) Description 07/18/2025 Telephone [facility] PAIN MANAGEMENT [address] [place] [address] Tete Ovalle PA-C [address] [place] [address] CRISP - MRI ORDER Social History Tobacco Use Types Packs/Day Years [...] Functional Status documented as of this encounter Miscellaneous Notes * Telephone Encounter - Sheila Pritchett RN - 07/18/2025 4:05 PM EDT S/w patient's notifying that Mri has been faxed * Telephone Encounter - Tamika Dill RegSched Rep - 07/18/2025 11:34 AM EDT Provider: ROHITH Caller: BERNA SONI Relationship to Patient: Emergency Contact Pharmacy: [facility] Phone Number: [phone] Reason for Call: PT CALLED AND STATED THAT [facility] NEEDS TO HAVE THE ORDERFAXED OVER TO THEM FOR THE MRI TO BE SCHEDULED ALSO NEEDS MEDS FOR FOR CLAUSTROPHOBIA WOULD LIKE A CALL BACK ONCE THIS IS COMPLETED documented in this encounter Plan of Treatment Upcoming Encounters Date Type Department Care Team (Late st Contact Info) Description 08/30/2025 8:45 AM EDT Office Visit [facility] PRIMARY CARE [address] [place] [address] [place] [address] Dmitri Wilkinson MD [address] [place] [address] [place] [address] 09/12/2025 10:45 AM EDT Office Visit [facility] NEUR[facility] [address] [facility] 201 [place] [address] Brandt Stout MD [address] [facility] 201 [place] [address] 09/26/2025 11:45 AM EST Office Visit [facility] PAIN MANAGEMENT 3000 [facility] [address] [place] [address] Tete Ovalle PA-C 1760 [facility] [address] [place] [id number] 01/02/2026 10:45 AM EST Office Visit [facility] CARDIOLOGY 3000 [facility] [address] [place] [address] Yuli Watts MD [address] [place] [address] documented as of this encounter Visit Diagnoses Not on filedocumented in this encounter Care Teams Fundraising Sale Representative Relationship Specialty Start Date End Date Dmitri Wilkinson MD [address] [place] [address] [place] [address] PCP - General Internal Medicine 09/08/22 documented as of this encounter
--- OUTSIDE RECORDS SUMMARY | 2025-08-26 12:31 | XMS_ITS | Referral Summary ---
Author Organization [employer] ([place], [place], [place], [place]) Address [address] [place] [address] Care Team Providers Care Oil Expeller Name Role Phone Unavailable Primary Care Provider [...] Date Gorge rded Speak language other than Portuguese at home Not on file 12/02/2023 Want [...] Orientation Not on file Plan of Treatment Not on file Insurance MEDICARE PART A B [facility]
--- OUTSIDE RECORDS SUMMARY | 2025-08-26 12:31 | XMS_ITS | Clinical Summary ---
[facility] Address [address] [place] [id number] Care Team Providers Care Bean Picker Name Role Phone Dmitri Wilkinson MD Primary Care Provider [phone] Allergies No known active allergies Medications [place]-3 Fatty Acids (OMEGA 3 PO) Take by mouth. Activ e melatonin 5 MG tablet tablet Take 1 tablet by mouth As Needed. Active polyethylene glycol (MiraLax) 17 GM/SCOOP powderIndication s:Chronic constipation 1/2-1 capful mixed with glass of juice or water orally once daily, titrating to maintain 1 or 2 soft bowel movements daily 527 g 5 3 Active aspirin 81 MG chewable tablet Chew 1 tablet Daily. Active acetaminophen (TYLENOL) 500 MG tablet Take 1 tablet by mouth Every 6 (Six) Hours As Needed for Mild Pain. Patient taking 2 tablets Active Cholecalciferol 25 MCG (1000 UT) tablet Take 1 tablet by mouth 2 (Two) Times a Day. Active cetirizine (ZyrTEC Allergy) 10 MG tablet Take 1 tablet every day by oral route as needed. Active multivitamin with minerals (CENTRUM SILVER 50+MEN PO) Take 1 tablet by mouth Daily. Active mupirocin (BACTROBAN) 2 % ointmentIndicati ons:Wound dehiscence Apply 1 Application topically to the appropriate area as directed 3 (Three) Times a Day. 22 g 4 Active albuterol sulfate HFA 108 (90 Base) MCG/ACT inhalerIndicatio ns:Reactive airways dysfunction syndrome Inhale 2 puffs Every 4 (Four) Hours As Needed for Wheezing or Shortness of Air. 18 g 1 4 Active psyllium (METAMUCIL) 58.6 % packet Take 1 packet by mouth Daily. Active atorvastatin (LIPITOR) 40 MG tablet TAKE 1 TABLET BY MOUTH EVERY DAY 90 tablet 2 4 Active magnesium oxide (MAG-OX) 400 MG tablet Take 1 tablet by mouth Daily. Active gabapentin (NEURONTIN) 600 MG tabletIndication s:Painful diabetic neuropathy Take 600 mg po TID and 1200 mg qhs 450 tablet 1 5 Active DULoxetine (Cymbalta) 30 MG capsule Take 1 capsule by mouth Daily. 90 capsule 3 5 04/04/20 26 Active DULoxetine (CYMBALTA) 60 MG capsule Take 1 capsule by mouth Daily. 90 capsule 3 5 Active losartan (COZAAR) 25 MG tabletIndication s:Microalbuminur ia TAKE 1 TABLET BY MOUTH EVERY DAY 90 tablet 2 5 Active meloxicam (MOBIC) 15 MG tablet Take 1 tablet by mouth Daily As Needed for Moderate Pain. 90 tablet 2 5 Active diazePAM (Valium) 5 MG tabletIndication s:Claustrophobia Take 1 tablet by mouth As Needed for Anxiety. 1 tablet 30 minutes prior to MRI, and 1 tablet immediately before MRI as needed 2 tablet 5 Active Active Problems Problem Noted Date Diagnosed Date Pure hypercholesterolemia 03/28/2025 Medicare annual wellness visit, subsequent 03/01 Assessment & Plan (03/01/2025 12:26 PM EDT): Restless legs 03/01/2025 Assessment & Plan (03/12/2025 11:17 AM EDT): Continue gabapentin 600 mg TID and 1200 mg qhs Assessment & Plan (03/01/2025 12:26 PM EDT): Does have some twitching and need to move his legs at nighttime. Is not always aware of this. Trial of magnesium 250 mg / 400 mg daily OTC. Moderate obesity 08/21/2024 Assessment & Plan (08/21/2024 3:33 PM EDT): Standard conversation regarding the pathophysiology of obesity, and that this disorder is considered to disease rather than just a lifestyle problem. He does follow a healthy diet diligently, and ST as best able given his chronic pain, does try to be physically active. He is interested in assistance with weight loss via medication, and we discussed actions of GLP-1 agonist along with contraindications and side effects. We have both agreed to initiate a trial of Wegovy 0.25 mg subcu weekly, with tentative plan to follow-up in 1 month for review and potential titration. If this is not a covered product, we did also discuss potential of generic semaglutide as an option. Viral URI with cough 02/27/2024 Assessment & Plan (02/27/2024 12:50 PM EDT): 4 days of classic upper respiratory symptoms most consistent with viral process, associated with bilateral conjunctivitis. has had similar symptoms for several days longer. Treat symptomatically with Bromfed-DM and addresses wheezing as detailed. Advise if not improving over the next several days or for any significant worsening. Acute left otitis media 02/27/2024 Assessment & Plan (02/27/2024 12:51 PM EDT): Likely secondary to eustachian tube dysfunction from his URI. Treating with prednisone to also address his reactive airways, Bromfed-DM for decongestant, and azithromycin. Advise if symptoms not resolving or for any acute worsening. Acute conjunctivitis of both eyes 02/27/2024 Assessment & Plan (02/27/2024 12:51 PM EDT): Polytrim drops along with warm moist compresses. Advise if not improving over several days or for any significant worsening. Reactive airways dysfunction syndrome 02/27/2024 Assessment & Plan (02/27/2024 12:51 PM EDT): Mild expiratory wheezing secondary to his URI, treating with prednisone along with an albuterol inhaler, proper demonstration of use given to the patient. Advised if not improving with treatment or for any significant worsening. Very clinically stable at time of discharge. Encounter for general adult medical examination with abnormal findings 02/03/2024 Assessment & Plan (03/01/2025 12:26 PM EDT): 75-year-old male presenting for Medicare wellness visit and complete physical, specific health issues being addressed as detailed below, health maintenance includes colonoscopy from 12/2022 revealing polyps with 5-year follow-up recommended with Dr. Barcenas, COVID-19 vaccine given today, to update RSV and consider Tdap through pharmacy, current with eye evaluation, EKG today unremarkable, limited hemoglobin A1c screen today stable, full laboratory testing obtained in 08/2024 not repeated today Assessment & Plan (02/03/2024 6:35 PM EDT): 74-year-old male presenting for yearly complete physical and Medicare wellness visit, health issues addressed as detailed below, laboratory testing up-to-date from 01/03/2024 and 08/03/2023, hemoglobin A1c and urine microalbumin updated today as detailed below, health maintenance includes colonoscopy from 12/2022 current with a 5-year follow-up recommended given history of polyps, recommended updating RSV and COVID-19 vaccines, Tdap recommended which will declined at this time given lack of Medicare coverage, and less he has a targeted injury. EKG today not performed as stable from 12/2023. Right-sided chest wall pain 02/03/2024 Assessment & Plan (02/27/2024 12:50 PM EDT): Several months of some vague right-sided lower anterolateral chest wall pain clinically appears to be located exclusively to the lower costal margin, today not involving upper abdomen, noted with twisting maneuvers. No history of blunt trauma. Notes has been worse in the last 3 to 4 days which would correlate to his development of cough and increased use of his costal muscles. There is no dyspnea, no relationship to eating, no nausea vomiting no change in bowel or urinary habits. Documented warm compresses, muscle rub cream, and rest is much as able given his current respiratory illness precipitating cough. If does not continue to settle down over the next several weeks we can certainly pursue a further workup which initially would involve chest x-ray and rib detail. If the symptoms resolved and this will not be necessary. Assessment & Plan (02/03/2024 6:25 PM EDT): Several months of some vague right-sided chest wall extending to the upper abdomen. Primarily noted with twisting maneuvers. No concerning cardiopulmonary or GI symptoms otherwise. Suspect musculoskeletal in nature. Observation recommended with conservative dose of NSAIDs. Advise if any change or acceleration of symptoms. Right upper quadrant abdominal pain 02/03/2024 Assessment & Plan (02/03/2024 6:33 PM EDT): Vague right upper quadrant/right lower chest wall discomfort, noted only with rotational movements of his trunk, no cardiopulmonary trigger, no relationship to eating with no associated nausea, benign exam, benign history, suspect musculoskeletal in nature. Clinical observation with conservative monitoring recommended unless becomes more problematic or change in nature of the symptoms. Microalbuminuria 02/03/2024 Assessment & Plan (03/01/2025 12:26 PM EDT): UACR today normal, having had noted previous microalbuminuria, on losartan. Assessment & Plan (02/03/2024 6:34 PM EDT): Microalbuminuria noted today on screening, associated prediabetes, does not have hypertension but based upon the microalbuminuria will start losartan 25 mg daily. Repeat urine microalbumin in 1 year. Check BMP in the next month to ensure no change in renal function or electrolytes. Wound dehiscence 02/03/2024 Assessment & Plan (02/03/2024 6:37 PM EDT): Small area of wound dehiscence on the surgical site of his right TKA taken last month, no clinical sign of infection, but will apply Rose ointment 2-3 times daily until heals. History of bilateral knee replacement 02/03/2024 Assessment & Plan (03/01/2025 12:26 PM EDT): Doing well with no further pain. Assessment & Plan (05/29/2024 6:15 PM EDT): Status post bilateral TKAs, on the left in 08/2023 and on the right in 12/[address] Victorino Reyes, clinically having done well subsequently. Assessment & Plan (02/03/2024 6:38 PM EDT): Status post bilateral TKAs, on the left 08/2023 on the right 12/[address] Victorino Brenner, rehabbing well. Degenerative lumbar spinal stenosis 10/12/2023 Assessment & Plan (03/01/2025 12:26 PM EDT): Chronic lumbago with spinal stenosis and lumbar radiculopathy, much improved taking gabapentin 6 7 mg 4 times daily, Cymbalta 60 mg daily, with added benefit given recent placement of a spinal stimulator. Keep follow-up with pain management and neurology. Assessment & Plan (08/21/2024 3:36 PM EDT): Patient with longstanding lumbago related to spinal stenosis and facet arthropathy, historically without classic neurogenic claudication though he does describe in the last 4 to 6 weeks some discomfort radiating from his right buttocks into the right posterolateral thigh, last MRI by history and 10/2021 revealing grade 1 L4 and L5 spondylolisthesis with severe spinal stenosis and facet arthropathy, having originally seen Dr. Bullock of pain management and initially having had success with pain reduction secondary to steroid injections in his back, presumably into the facets, most recently 02/2023, Dr. Bullock subsequently having left local practice, patient subsequently having had a single consultation with Dr. Granger in the same pain management group, patient now interested in transferring care to [facility] pain management to consolidate all of his health care, with subsequent consultation with Dr. Hill. He is to undergo a trial of Nevro HF 10 stimulator in the near future for now continuing his chronic regimen of gabapentin 600 mg 4 times daily, duloxetine 60 mg daily, and meloxicam 15 mg daily Assessment & Plan (05/29/2024 6:21 PM EDT): Patient with longstanding lumbago related to spinal stenosis and facet arthropathy, without classic neurogenic claudication, last MRI by history and 10/2021 revealing grade 1 L4 and L5 spondylolisthesis with severe spinal stenosis and facet arthropathy, having originally seen Dr. Bullock of pain management and initially having had success with pain reduction secondary to steroid injections in his back, presumably into the facets, most recently 02/2023, Dr. Bullock subsequently having left local practice, patient subsequently having had a single consultation with Dr. Granger in the same pain management group, patient now interested in transferring care to [facility] pain management to consolidate all of his health care. Will make related referral. Patient understands to bring copy of images of his most recent MRI to this consultation. Screening for thyroid disorder 08/04/2023 Assessment & Plan (03/01/2025 12:26 PM EDT): Vitamin D deficiency 08/04/2023 Assessment & Plan (03/01/2025 12:26 PM EDT): Vitamin D 1000 IU at 2 tablets daily. Assessment & Plan (02/03/2024 6:32 PM EDT): Taking supplemental vitamin D 1000 IU daily. Therapeutic level per testing 07/2023. Coronary artery disease invo lving [place] coronary artery of [place] heart without angina pectoris 08/04/2023 Overview (02/03/2024): CTA 06/18/2021 with mild disease in the OM and diagonal arteries Assessment & Plan (03/01/2025 12:26 PM EDT): Coronary CTA in 06/2021 indicative of mild disease in the OM and diagonal arteries, asymptomatic, continue risk factor modification with aspirin and atorvastatin 40 mg nightly. EKG today revealing a stable first-degree AV block with no ischemic changes, stable questionable inferior Q waves, noting previous PVCs noted last year not noted on today's EKG. Orders: ECG 12 Lead Assessment & Plan (02/03/2024 6:36 PM EDT): History of coronary CTA in 06/2021 revealing mild disease in OM and diagonal arteries. Continue risk factor modification with aspirin and atorvastatin 40 mg nightly. Does not have hypertension thus on no related medication. EKG from 12/2023 revealing a first-degree AV block and a occasional uniform PVC with no ischemic changes. Assessment & Plan (08/25/2023 10:26 AM EDT): Coronary artery disease is stable . Continue current treatment regimen. Dietary sodium restriction. Weight loss. Regular aerobic exercise. Cardiac status will be reassessed in 6 months. Preop cardiovascular exam 08/04/2023 Assessment & Plan (08/25/2023 10:28 AM EDT): Coronary CTA from 2020, EKG 2022 and Echocardiogram reviewed. Low risk candidate, no indication for revascularization prior to knee replacement surgery. Proceed as planned. Influenza vaccine administered 08/04/2023 Degenerative arthritis of left knee 07/06/2023 Lumbosacral radiculopathy 05/24/2023 Assessment & Plan (03/01/2025 12:26 PM EDT): Chronic lumbago with spinal stenosis and lumbar radiculopathy, much improved taking gabapentin 6 7 mg 4 times daily, Cymbalta 60 mg daily, with added benefit given recent placement of a spinal stimulator. Keep follow-up with pain management and neurology. Assessment & Plan (09/11/2024 11:28 AM EDT): SCS trial Assessment & Plan (08/21/2024 3:36 PM EDT): Patient with longstanding lumbago related to spinal stenosis and facet arthropathy, historically without classic neurogenic claudication though he does describe in the last 4 to 6 weeks some discomfort radiating from his right buttocks into the right posterolateral thigh, last MRI by history and 10/2021 revealing grade 1 L4 and L5 spondylolisthesis with severe spinal stenosis and facet arthropathy, having originally seen Dr. Bullock of pain management and initially having had success with pain reduction secondary to steroid injections in his back, presumably into the facets, most recently 02/2023, Dr. Bullock subsequently having left local practice, patient subsequently having had a single consultation with Dr. Granger in the same pain management group, patient now interested in transferring care to [facility] to consolidate all of his health care, with subsequent consultation with Dr. Hill. He is to undergo a trial of Nevro HF 10 stimulator in the near future for now continuing his chronic regimen of gabapentin 600 mg 4 times daily, duloxetine 60 mg daily, and meloxicam 15 mg daily History of nuclear stress test 01/31/2023 Overview (01/31/2023): 05/12/[address] Leyva revealing EF 53 to 58%, fixed inferior perfusion defect likely attenuation with minimal reversibility, overall low risk study Chronic constipation 01/31/2023 Assessment & Plan (03/01/2025 12:26 PM EDT): History of constipation currently well-managed simply taking Citrucel daily with rare use of MiraLAX. Colonoscopy from 12/2022 revealed polyps only with a 5-year follow-up recommended History of colon polyps 01/31/2023 Overview (02/03/2024): Colonoscopy 12/17/2022 with a 5-year follow-up recommended. Assessment & Plan (02/03/2024 6:33 PM EDT): History of colon polyps, most recent colonoscopy 12/2022 with a 5-year follow-up recommended. First degree AV block 01/31/2023 Assessment & Plan (03/01/2025 12:26 PM EDT): Stable EKG today revealing first-degree AV block. Orders: ECG 12 Lead Diverticulosis large intesti ne w/o perforation or abscess w/bleeding 01/31/2023 Idiopathic peripheral neuropathy 08/10/2022 Assessment & Plan (03/12/2025 11:17 AM EDT): Sx not controlled Gabapentin 600 mg TID and 1200 mg qhs Increased Cymbalta 90 mg daily Assessment & Plan (03/01/2025 12:26 PM EDT): Follows with Dr. Stout of neurology, having had significant improvement in control of symptoms using gabapentin 600 mg 4 times daily, Cymbalta 60 mg daily, and with added benefit of recent spinal stimulator placement by pain management. Assessment & Plan (09/11/2024 11:20 AM EDT): Continue GBP SCS trial Assessment & Plan (08/21/2024 3:34 PM EDT): Idiopathic bipedal sensory neuropathy, specific etiology uncertain, possibly secondary to his prediabetes though the symptoms seem to precede this diagnosis, initially followed by Dr. Alejandro, most recently followed by Dr. Vy Quiñones of neurology who apparently now is leaving her local practice, currently taking gabapentin 600 mg 4 times daily and duloxetine 60 mg nightly, with fair control of symptoms. If he does miss a dose of the gabapentin he will have an immediate flareup of pain. He is interested in initiating care with neurology through [facility], and we did previously discuss other treatment options including addition of a low-dose TCA, versus increasing duloxetine, versus other options per neurology and/or pain management. He just recently established with a new pain management physician and is to undergo a trial of Nevro HF 10 stimulator, and is to establish with new neurologist later this month. Assessment & Plan (05/29/2024 6:18 PM EDT): Idiopathic bipedal sensory neuropathy, specific etiology uncertain, possibly secondary to his prediabetes though the symptoms seem to precede this diagnosis, initially followed by Dr. Alejandro, most recently followed by Dr. Vy Quiñones of neurology who apparently now is leaving her local practice, currently taking gabapentin 600 mg 4 times daily and duloxetine 60 mg nightly, with fair control of symptoms. If he does miss a dose of the gabapentin he will have an immediate flareup of pain. He is interested in initiating care with neurology through [facility], and we did discuss other treatment options including addition of a low-dose TCA, versus increasing duloxetine, versus other options per neurology and/or pain management. Patient quired regarding potential benefit of CBD compound, noting individual in his adventism did have related success with neuropathic pain. Patient can can discuss with consultants. Assessment & Plan (02/03/2024 6:39 PM EDT): Idiopathic bipedal sensory neuropathy, specific etiology uncertain, possibly secondary to his prediabetes though the symptoms seem to precede this diagnosis, initially followed by Dr. Alejandro, now followed by Dr. Vy Quiñones of neurology, currently taking gabapentin 600 mg 4 times daily and duloxetine 60 mg nightly, with fair control of symptoms. If he does miss a dose of the gabapentin he will have an immediate flareup of pain. We did discuss other treatment options including addition of a low-dose TCA, versus increasing duloxetine, patient did discuss his symptoms and possible alteration in medication regimen with Dr. Quiñones at his follow-up visit. Primary osteoarthritis of both knees 08/10/2022 Assessment & Plan (03/01/2025 12:26 PM EDT): Resolved status post bilateral TKAs Assessment & Plan (02/03/2024 6:37 PM EDT): Status post bilateral TKAs, on the left in 08/2023 on the right in 12/2023. Rehabbing well with both. Benign lipomatous neoplasm o f skin and subcutaneous tissue of trunk 08/09/2022 Primary hypertension 08/09/2022 Assessment & Plan (03/01/2025 12:26 PM EDT): Taking losartan 25 mg daily with satisfactory blood pressure control Orders: ECG 12 Lead Assessment & Plan (12/22/2022 8:22 PM EST): -At goal -Treating MARII will likely benefit MARII Mixed hyperlipidemia 08/09/2022 Assessment & Plan (03/01/2025 12:26 PM EDT): Prescribed atorvastatin 40 mg nightly. Lipid profile from 08/2024 satisfactory. Assessment & Plan (08/21/2024 3:31 PM EDT): Taking atorvastatin 40 mg nightly. Update lipid profile Assessment & Plan (02/03/2024 6:22 PM EDT): Taking atorvastatin 40 mg nightly. Update lipid profile. Obesity 08/09/2022 Assessment & Plan (03/01/2025 12:26 PM EDT): 6 pound weight loss since seen a month ago. Previously prescribed semaglutide which cannot afford given lack of insurance coverage. We did discuss options of compounded GLP-1 agonist which will be put on hold for now Assessment & Plan (02/03/2024 6:26 PM EDT): 8 pound weight loss in the last month, encouraging further efforts at weight loss acknowledging that he recently underwent a right TKA and prior to that a left TKA which does acutely limit his ability to be physically active. MARII (obstructive sleep apnea) 08/09/2022 Assessment & Plan (03/01/2025 12:26 PM EDT): Compliant with CPAP machine, followed by Dr. María Elena Watts. Assessment & Plan (08/25/2023 10:29 AM EDT): Patient is doing very well on PAP therapy with good control and compliance. Download reviewed and interpreted. Compliance is 100%, AHI is 1.5. He is benefiting from PAP therapy with plan to continue at current settings. Assessment & Plan (12/22/2022 8:19 PM EST): - Baseline AHI 11 on 10/30/2019 - Last titration was January 16, 2020 - Download reviewed and interpreted in clinic today - Patient is benefiting from PAP therapy we will plan to continue - Patient's current auto CPAP settings are 9-13 with an EPR of 3 - Supply order sent to patient's DME of choice - Order for travel Pap printed for patient - Patient currently using Kaleb, full facemask, 6 foot nonheated tubing Old myocardial infarct 08/09/2022 Assessment & Plan (02/03/2024 6:24 PM EDT): Questionable myocardial in fact based upon previous Q waves, never formally documented clinically, most recent EKG last month was unremarkable for any Q waves or other ischemic changes. Taking aspirin empirically along with statin not on antihypertensives given no history of hypertension.. Pain in right knee 08/09/2022 Prediabetes 08/09/2022 Overview (08/21/2024): Hemoglobin A1c 6.0% in 07/2023, 5.8% in 12/2023, 5.9% in 01/2024, hemoglobin A1c 5.7% in 08/2024 Assessment & Plan (03/01/2025 12:26 PM EDT): Hemoglobin A1c today 5.8% versus 5.7% in 08/2024, UACR less than 30, normal Orders: POC Glycosylated Hemoglobin (Hb A1C) POC Glucose, Blood POC Albumin/Creatinine Ratio Urine Assessment & Plan (08/21/2024 3:32 PM EDT): Excellent glycemic control and no meds with a hemoglobin A1c today of 5.7% versus 5.9% in 01/2024. Continue healthy lifestyle efforts with diet, as well as exercise as able. He does have associated microalbuminuria for which he takes losartan 25 mg daily. Assessment & Plan (02/03/2024 6:39 PM EDT): Hemoglobin A1c 6.0% in 07/2023 improved to 5.8% 12/2023, and today 5.9%. Continue current efforts at healthy lifestyle diet and exercise. Repeat testing in 6 months. 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 Overview (08/03/2023): From Automated Load;Provider: Mac Paniagua III;Status: Active Resolved Problems Problem Noted Date Diagnosed Date Resolved Date Type 2 diabetes mellitus wit h hyperglycemia, without long-term current use of insulin 02/03/2024 03/01/2025 Athscl heart disease of [place] ve coronary artery w/o ang pctrs 08/09/2022 11/30/2022 BPH (benign prostatic hyperplasia) 08/09/2022 03/01/2025 Neuropathy 08/09/2022 11/29/2022 Encounters Date Type Department Care Team Description 08/14/2025 1:10 PM EDT Office Visit [facility] [address] [id number] Neftaly Hill MD S/P insertion of spinal cord stimulator (Primary Dx); Painful diabetic neuropathy; Lumbosacral spondylosis without myelopathy; Chronic pain syndrome; Spinal stenosis of lumbar region with neurogenic claudication 08/14/2025 Travel 08/07/2025 Telephone [facility] PAIN MANAGEMENT [address] [facility] [address] [place] [phone] Mitzi Zepeda MA 07/29/2025 Telephone [facility] PAIN MANAGEMENT [address] [facility] [address] [place] [phone] Neftaly Hill MD [place] - SEDATIVE FOR MRI 07/18/2025 9:30 AM EDT Office Visit [facility] PAIN MANAGEMENT [address] [place] [address] Tete Ovalle PA-C S/P insertion of spinal cord stimulator (Primary Dx); Painful diabetic neuropathy; Lumbosacral spondylosis without myelopathy; Vertebrogenic low back pain; Chronic pain syndrome 07/18/2025 Telephone [facility] PAIN [facility]NAGEMENT [address] [facility] [address] [place] [phone] Tete Ovalle PA-C [place] - MRI ORDER 07/18/2025 Travel 06/27/2025 11:15 AM EDT Office Visit [facility] CARDIOLOGY [address] [place] [address] Yuli Watts MD MARII (obstructive sleep apnea) (Primary Dx) 06/27/2025 Travel 06/13/2025 Telephone [facility] PAIN MANAGEMENT [address] [facility] [address] [place] [address] Tete Ovalle PA-C 06/13/2025 Refill [facility] PAIN MANAGEMENT [address] [place] [address] Tete Ovalle CYNTHIA 06/12/2025 Telephone [facility] [address] [facility] [address] [place] [address] Tete Ovalle PA-C [place] - RX REFILL from Last 3 Months Immunizations Immunization Administration Dates Next Due COVID-19 (PFIZER) 12YRS+ (COMIRNATY) 03/01/2025 COVID-19 (UNSPECIFIED) 05/14/2023 Fluzone >6mos 07/15/2020 Fluzone High-Dose 65+YRS 08/21/2024,08/27/2019,0 07/27/2017 Fluzone High-Dose 65+yrs 08/04/2023,08/04/2022 Hepatitis A 04/04/2006 Hepatitis B Adult/Adolescent IM 10/17/2006,05/16,04/04/2006 IPV 04/04/2006 Pneumococcal Conjugate 13-Valent (PCV13) 019 Pneumococcal Conjugate 20-Valent (PCV20) 023 Pneumococcal, Unspecified 09/04/2004 Shingrix 08/14/2018,03/21/2018 Tdap 04/04/2006 Family History Medical History Relation Name Comments Cancer Father Dmitri Carlton Hypertension Mother Heidi Stroke Mother Heidi Relation Name Status Comments Father Dmitri Carlton Mother Heidi Social History Tobacco Use Types Packs/Day Years [...] Pulse 78 06/27/2025 11:04 AM EDT Temperature 36.6 C (97.8 F) 03/01/2025 8:39 AM EDT Respiratory Rate 18 08/10/2022 10:37 AM EDT Oxygen Saturation 97% 06/27/2025 11:04 AM EDT Inhaled Oxygen Concentration - - Weight 125 kg (275 lb) 08/14/2025 1:14 PM EDT Height 182.9 cm (6') 08/14/2025 1:14 PM EDT Body Mass Index 37.3 08/14/2025 1:14 PM EDT Plan of Treatment Upcoming Encounters Date Type Department Care Team (Late st Contact Info) Description 08/30/2025 8:45 AM EDT Office Visit [facility] PRIMARY CARE [address] [place] [address] [place] [phone] Dmitri Wilkinson MD [address] [place] [address] [place] [address] 09/12/2025 10:45 AM EDT Office Visit [facility] NEUROLOGY [address] [facility] [address] [place] [address] Brandt Stout MD [address] [facility] [address] [place] [address] 09/26/2025 11:45 AM EST Office Visit [facility] PAIN MANAGEMENT [address] [place] [address] [address] [place] [address] Tete Ovalle PA-C [address] [facility] [address] [place], [place] [phone] 01/02/2026 10:45 AM EST Office Visit [facility] CARDIOLOGY [address] [place] [address] Yuli Watts MD [address] [place] [address] Health Maintenance Due Date Last Done Comments TDAP/TD VACCINES (2 - Td or Tdap) 04/04/2016 006 RSV Vaccine - Adults (1 - 1- dose 75+ series) 01/19/2024 INFLUENZA VACCINE 06/14/2025 08/21/2024, , 08/04/2022, Additional history exists LIPID PANEL 08/21/2025 08/21/2024, 06/2024, 08/04/2023, Additional history exists COVID-19 Vaccine (8 - Pfizer risk season) 2025 03/01/2025, 05/14/2023, 01/11/2023, Additional history exists HEMOGLOBIN A1C 08/31/2025 03/01/2025, 06/2024, 02/03/2024, Additional history exists DIABETIC EYE EXAM 02/12/2026 02/12/2025 ANNUAL WELLNESS VISIT 03/01/2026 03/01/2025 , 03/01/2025, 02/03/2024, Additional history exists DIABETIC FOOT EXAM 03/01/2026 03/01/2025, 0 03/01/2025, 03/01/2025, Additional history exists URINE MICROALBUMIN-CREATININ E RATIO (uACR) 03/01/2026 03/01/2025, 08/21/2024 ZOSTER VACCINE Completed 08/14/2018, 03/21/2018 HEPATITIS C SCREENING Completed 08/10/2022 COLONOSCOPY Discontinued 12/17/2022, 01/2023, 10/29/2009 COLORECTAL CANCER SCREENING Discontinued Pneumococcal Vaccine 50+ Completed 023, 08/27/2019, 09/04/2004 COLOGUARD Discontinued COLON CANCER SCREENING 5 YEA R SIGMOIDOSCOPY Discontinued CT COLONOGRAPHY Discontinued FECAL OCCULT BLOOD TEST Discontinued FIT Testing (1 year) Discontinued Procedures Procedure Name Priority Date/Time Associated Diagnosis Comments MRI OUTSIDE FILMS Routine 08/01/2025 12: 00 AM EDT MRI LUMBAR SPINE WO CONTRAST Routine 08/01/2025 Vertebrogenic low back pain SCANNED - PULMONARY RESULTS 06/25/2025 POC ALBUMIN/CREATININE RATIO Routine 03/01/2025 9:08 AM EDT Prediabetes POCT GLYCOSYLATED HEMOGLOBIN (HGB A1C) Routine 03/01/2025 9:02 AM EDT Prediabetes LIPID PANEL Routine 08/21/2024 4:02 PM EDT Mixed hyperlipidemia HEPATITIS C ANTIBODY Routine 08/10/2022 11:55 AM EDT Need for hepatitis C screening test from Last 3 Months or Most Recently Relevant to Health Maintenance Results * MRI Outside Films (08/01/2025 12:00 AM EDT) Narrative SYSTEMGENERATED, DOCUMENTATION - 08/14/2025 1:20 PM EDT This procedure was auto-finalized with no dictation required. Neftaly Hill MD IMG MRI ORDERABLES Final Resu lt * MRI Lumbar Spine Without Contrast (08/01/2025) Anatomical Region Laterality Modality Spine, L-spine N/A Magnetic Resonan ce Tete Ovalle PA-C IMG MRI ORDERABLES Final Result * Pulmonary Results Scan (06/25/2025) Yuli Watts MD PFT ORDERABLES Final Result * POC Albumin/Creatinine Ratio Urine (03/01/2025 9:08 AM EDT) POC ALBUMIN, URINE 30 mg/L POC CREATININE, URINE 100 mg/dL POC Urine Albumin Creatinine Ratio <30 <30 Lot Number [id number] Expiration Date 06/22/2026 Urine 03/01/2025 9:08 AM EDT Dmitri Wilkinson MD POINT OF CARE TEST ORDERABLES Final Result * (ABNORMAL) POC Glycosylated Hemoglobin (Hb A1C) (03/01/2025 9:02 AM EDT) Hemoglobin A1C 5.8(A) 4.5 - 5.7 % [facility] Lot Number [id number] [facility] Expiration Date 12/03/2026 [facility] Blood 03/01/2025 9:02 AM EDT us Dmitri Wilkinson MD POINT OF CARE TEST ORDERABLES Final Result [facility]
[address] [place] [address], * Lipid Panel (08/21/2024 4:02 PM EDT) Total Cholesterol 132 100 - 199 mg/dL [facility] Triglycerides 141 0 - 149 mg/dL [facility] HDL Cholesterol 50 >39 mg/dL [facility] VLDL Cholesterol Rafael 24 5 - 40 mg/dL [facility] LDL Chol Calc (NIH) 58 0 - 99 mg/dL [facility] Blood Structure of left upper limb / Unknown 08/21/2024 4:02 PM EDT 08/21/2024 Comment:Blood Release to [facility] - 08/22/2024 11:08 AM EDT Performed at: 01 - [facility] [id number] [employer] Car: Noe Escamilla PhD, Phone: [phone] us Dmitri Wilkinson MD LAB BLOOD ORDERABLES Final Res ult Performing Organization Address City/[facility]/ZIP Co de Phone Number [facility] ([facility]) [address] [place] [address], [place] [phone] [facility] [address] [place] [address], [place] [phone] * Hepatitis C Antibody (08/10/2022 11:55 AM EDT) Hep C Virus Ab <0.1 0.0 - 0.9 s/co ratio [facility] Comment: Negative: < 0.8 Indeterminate: 0.8 - 0.9 Positive: > 0.9 HCV antibody alone does not differentiate between previous resolved infection and active infection. The CDC and current clinical guidelines recommend that a positive HCV antibody result be followed up with an HCV RNA test to support the diagnosis of acute HCV infection. [facility] offers Hepatitis C Virus (HCV) RNA, Diagnosis, MAXIM (930798) and Hepatitis C Virus (HCV) Antibody with reflex to Quantitative Real-time PCR ([id number]). Blood Structure of left upper limb / Unknown 08/10/2022 11:55 AM EDT 08/10/2022 Comment:Blood Manual Differe n Narrative [facility] (AMBULATORY) - 08/11/2022 6:06 AM EDT Performed at: - [address] [id number] [employer]: Noe Escamilla PhD, Phone: [phone] us Dmitri Wilkinson MD LAB BLOOD ORDERABLES Final Res ult [facility] [employer] [facility] ([facility]BULATORY) [address] [place] [address], [facility] [address] [place] [address], [place] [phone] from Last 3 Months or Most Recently Relevant to Health Maintenance [place] [address] [place] [address] MEDICARE A & B Care Teams Bean Picker Relationship Specialty Start Date End Date Dmitri Wilkinson MD [address] [place] [address] [place] [address] PCP - General Internal Medicine 09/08/22
== END 2025-08-26 23:59 | disposition home or self-care (01) ==
LOC: RAD 12:28
PROVIDERS: PCP Internal Medicine; Visit Provider Podiatrist
DX: M19.072 Primary osteoarthritis, left ankle and foot (principal)
CPT/HCPCS: 73630

== ENCOUNTER 2025-09-30 13:36 | Outpatient (CLI) | payer MEDICARE, BC, SELFPAY ==
--- NOTE | 2025-09-30 13:38 | XR_ITS ---
FINAL REPORT CLINICAL HISTORY: foot pain COMPARISON: 08/26/2025 FINDINGS: LEFT FOOT Three views of the left foot demonstrate a transverse fracture through the proximal fifth metatarsal, nondisplaced and new since the prior exam. The visualized joint spaces are normally aligned. The soft tissues are unremarkable. IMPRESSION: New transverse fracture proximal fifth metatarsal. Reviewed, Interpreted and Dictated by Marquise Callahan MD Transcribed by Constanza Curry Authenticated and [facility]
--- NOTE | 2025-09-30 13:38 | XR_ITS ---
FINAL REPORT CLINICAL HISTORY: ankle pain COMPARISON: None FINDINGS: LEFT ANKLE Three views demonstrate no acute fracture or dislocation. The visualized joint spaces are normally aligned. The soft tissues are unremarkable. IMPRESSION: No acute bony abnormality. Reviewed, Interpreted and Dictated by Marquise Callahan MD Transcribed by Constanza Curry Authenticated and [facility]
== END 2025-09-30 23:59 | disposition home or self-care (01) ==
LOC: RAD 13:37
PROVIDERS: PCP Internal Medicine; Visit Provider Podiatrist
DX: S92.355A Nondisplaced fracture of fifth metatarsal bone, left foot, initial encounter for closed fracture (principal); X58.XXXA Exposure to other specified factors, initial encounter; M25.572 Pain in left ankle and joints of left foot
CPT/HCPCS: 73610; 73630

== ENCOUNTER 2025-10-21 08:54 | Outpatient (CLI) | payer MEDICARE, BC, SELFPAY ==
--- NOTE | 2025-10-21 08:58 | XR_ITS ---
PROCEDURE INFORMATION: Exam: XR Left Foot Complete; Alignment Exam date and time: 10/21/2025 9:01 AM Age: 75 years old Clinical indication: Other: Evaluate left foot fracture TECHNIQUE: Imaging protocol: Radiologic exam of the left foot. Views: 3 or more views. COMPARISON: CR XR FOOT WT BEARING LT 3V 09/30/2025 1:57 PM FINDINGS: Bones/joints: Redemonstrated nondisplaced proximal 5th metatarsal diaphysis fracture with increased lucency of fracture line and adjacent periosteal reaction compatible with healing. Midfoot degenerative changes. Tarsometatarsal alignment is maintained. Soft tissues: Unremarkable. IMPRESSION: Incompletely healed nondisplaced proximal 5th metatarsal fracture.
== END 2025-10-21 23:59 ==
LOC: RAD 08:55
PROVIDERS: PCP Internal Medicine; Visit Provider Podiatrist
DX: S92.355D Nondisplaced fracture of fifth metatarsal bone, left foot, subsequent encounter for fracture with routine healing (principal); M19.072 Primary osteoarthritis, left ankle and foot; X58.XXXD Exposure to other specified factors, subsequent encounter
CPT/HCPCS: 73630